=== PATIENT | male | born 1970 | race Caucasian/White ===

== ENCOUNTER → 2017-05-14 09:41 | Outpatient (CLI) | payer OTHER, SELFPAY ==
[2017-05-14 10:52] LABS: Creatinine, Serum 0.98 mg/dL (0.70-1.30); EST Glomerular Filtration Rate 88 mL/min (>60); Est Glom Filt Rate - Afr Amer 107 mL/min (>60)
== END ==
PROVIDERS: Visit Provider Orthopaedic Surgery
DX: N28.9 Disorder of kidney and ureter, unspecified (principal)
CPT/HCPCS: 36415; 82565